=== PATIENT | female | born 1980 | race Caucasian/White ===

== ENCOUNTER 2017-01-01 12:58 | Emergency (ER) | payer OTHER ==
[2017-01-01 13:36] VITALS: BP 119/76
--- NOTE | 2017-01-01 13:51 | UC ---
Respiratory Complaint HPI - HPI Summary HPI Summary: 36 y/o female presents to the urgent care c/o persistent productive cough for the past 3 days. Pt states her symptoms are associated with sore throat, nasal congestion with green nasal discharge, mild body aches, subjective fever at home , mild WILLS. She has not taking anything to alleviate symptoms. Pt denies SOB, chest pain, N/V/D - History of Current Complaint Hx Obtained From: Patient Hx Last Menstrual Period: does not get, mirena ?: No Onset/Duration: Gradual Onset, Lasting Days - 3 days, Still Present Timing: Constant Severity Initially: Moderate Severity Currently: Moderate Pain Intensity: 5 Pain Scale Used: 0-10 Numeric Character: Cough: Productive - green phlegm Aggravating Factors: Nothing Alleviating Factors: Bronchodilator Associated Signs And Symptoms: Positive: Dyspnea, Fever - subjective fever, Nasal Congestion, Sinus Discomfort. Negative: Wheezing - Risk Factors Pulmonary Embolism Risk Factors: Negative Cardiac Risk Factors: Negative Pseudomonas Risk Factors: Negative Tuberculosis Risk Factors: Negative <Christy Almonte - Last Filed: 01/01/17 14:31> <Evelyn Rust - Last Filed: 01/04/17 20:35> - History of Current Complaint Chief Complaint: UCRespiratory Stated Complaint: COUGH CONGESTION Time Seen by Provider: 01/01/17 13:49 - Allergies/Home Medications Allergies/Adverse Reactions: Allergies Allergy/AdvReac Type Severity Reaction Status Date / Time [place] Allergy Shortness Verified 01/01/17 13:36 of Breath PMH/Surg Hx/FS Hx/Imm Hx Previously Healthy: Yes Respiratory History: Asthma Psychological History: Depression - Surgical History Surgical History: Yes Surgery Procedure, Year, and Place: Cholecystectomy, 2008, [facility] – [place] - Family History Known Family History: Positive: Diabetes - father - Social History Occupation: Employed Full-time Lives: With Family Alcohol Use: None Substance Use Type: None Smoking Status (MU): Never Smoked Tobacco Have You Smoked in the Last Year: No Household Exposure Type: Cigarettes - Immunization History Most Recent Influenza Vaccination: NEVER Most Recent Tetanus Shot: unsure Most Recent Pneumonia Vaccination: never <Christy Almonte - Last Filed: 01/01/17 14:31> Review of Systems Constitutional: Fever - subjective at home Skin: Negative Eyes: Negative ENT: Sore Throat, Nasal Discharge, Sinus Congestion Respiratory: Cough - productive Cardiovascular: Negative Gastrointestinal: Negative Genitourinary: Negative Motor: Negative Neurovascular: Negative Musculoskeletal: Negative Neurological: Headache - mild Psychological: Negative Is Patient Immunocompromised?: No All Other Systems Reviewed And Are Negative: Yes <Christy Almonte - Last Filed: 01/01/17 14:31> Physical Exam Triage Information Reviewed: Yes Appearance: Well-Appearing, No Pain Distress, Well-Nourished, Obese Vital Signs: Initial Vital Signs Temp 98.9 F 01/01/17 13:31 Pulse 63 01/01/17 13:31 Resp 16 01/01/17 13:31 BP 119/76 01/01/17 13:31 Pulse Ox 99 01/01/17 13:31 Vital Signs Reviewed: Yes Eye Exam: Normal Eyes: Positive: Conjunctiva Clear - PERRLA, EOMI ENT: Positive: Normal ENT inspection, Hearing grossly normal, Pharyngeal erythema - B/l and positive palate pethechia, Nasal congestion - edematous nasal mucosa, TMs normal, Tonsillar swelling, Other: - B/L maxillary sinus tenderness on percussion. Negative: Tonsillar exudate Neck exam: Normal Neck: Positive: Supple, Nontender, No Lymphadenopathy Respiratory Exam: Normal Respiratory: Positive: Chest non-tender, Lungs clear, Normal breath sounds Cardiovascular Exam: Normal Cardiovascular: Positive: RRR, No Murmur, Pulses Normal, Brisk Capillary Refill Abdominal Exam: Normal Abdomen Description: Positive: Nontender, No Organomegaly, Soft. Negative: CVA Tenderness (R), CVA Tenderness (L) Bowel Sounds: Positive: Present Musculoskeletal Exam: Normal Musculoskeletal: Positive: Strength Intact, ROM Intact, No Edema Neurological Exam: Normal Psychological Exam: Normal Skin Exam: Normal <Christy Almonte - Last Filed: 01/01/17 14:31> Vital Signs: Initial Vital Signs Temp 98.9 F 01/01/17 13:31 Pulse 63 01/01/17 13:31 Resp 16 01/01/17 13:31 BP 119/76 01/01/17 13:31 Pulse Ox 99 01/01/17 13:31 <Evelyn Rust - Last Filed: 01/04/17 20:35> UC Diagnostic Evaluation - Laboratory O2 Sat by Pulse Oximetry: 99 <Christy Almonte - Last Filed: 01/01/17 14:31> Respiratory Course/Dx - Course Course Of Treatment: 36 y/o female presents to the urgent care c/o persistent productive cough for the past 3 days. Pt states her symptoms are associated with sore throat, nasal congestion with green nasal discharge, mild body aches, subjective fever at home, mild WILLS. She has not taking anything to alleviate symptoms. Pt denies SOB, chest pain, N/V/D. Hx obtained. Rapid strep ordered, result:negative Influenza A&B ordered, result: negative. Pt with upper respiratory infection. Pt Advised to continue doing the albuterol nebulizer treatments to alleviate cough and avoid an asthma exacerbation. Pt also Rx Tessalon tabs PO for cough. Ibuprofen PO q6-8hrs to alleviate sore throat. Pt advised If symptoms do not improve or worsen or your develop SOB with fever and severe wheezing please f/u with your PCP or return to the urgent care for further evaluation and treatment. Pt understood and agreed with plan of care. - Differential Dx/Diagnosis Differential Diagnosis/HQI/PQRI: Asthma, Bronchitis, Influenza, Laryngitis, Sinusitis, Other - pharyngitis, Provider Diagnoses: 1- Upper respiratory infection <Christy Almonte - Last Filed: 01/01/17 14:31> Discharge <Christy Almonte - Last Filed: 01/01/17 14:31> <Evelyn Rust - Last Filed: 01/04/17 20:35> - Discharge Plan Condition: Stable Disposition: HOME Prescriptions: Albuterol 2.5MG/3ML (0.083%)* [Ventolin 2.5 MG/3 ML NEB.MAYITO*] 2.5 mg INH Q6H #1 ila Benzonatate CAP* [Tessalon 100 MG CAP*] 100 mg PO TID #15 cap Ibuprofen TAB* [Motrin TAB* 800 MG] 800 mg PO Q6H #30 tab Patient Education Materials: Upper Respiratory Infection (ED) Referrals: Saima Adams MD [Primary Care Provider] - If Needed Additional Instructions: 1-Please take the Ibuprofen PO q6-8hrs as directed after meals to alleviate sore throat and swelling. 2-Take Tessalon PO tabs as directed and use the albuterol inhaler to alleviate cough. Increase fluid intake, rest and eat well. 3- If symptoms do not improve or worsen or your develop SOB with fever and severe wheezing please f/u with your PCP or return to the urgent care for further evaluation and treatment Attestation Statement User Type: Provider - I was available for consult. This patient was seen by the MICK. The patient was not presented to, seen by, or examined by me. -D[place]ter <Evelyn Rust - Last Filed: 01/04/17 20:35>
== END 2017-01-01 14:45 | disposition home or self-care (01) ==
LOC: UCCORT 12:58
DX: J06.9 Acute upper respiratory infection, unspecified (principal); J45.909 Unspecified asthma, uncomplicated
CPT/HCPCS: 87502; 87651; 99212; G0463

== ENCOUNTER 2017-01-13 12:03 | Emergency (ER) | payer OTHER ==
--- NOTE | 2017-01-13 14:23 | RAD ---
HISTORY: Persistent cough, fever COMPARISONS: None VIEWS: 4: Frontal dual-energy and lateral views of the chest. FINDINGS: CARDIOMEDIASTINAL SILHOUETTE: The cardiomediastinal silhouette is normal. ABRAN: The abran are normal. PLEURA: The costophrenic angles are sharp. No pleural abnormalities are noted. LUNG PARENCHYMA: The lungs are clear. ABDOMEN: The upper abdomen is clear. There is no subphrenic gas. BONES AND SOFT TISSUES: No bone or soft tissue abnormalities are noted. OTHER: None. IMPRESSION: NO ACTIVE CARDIOPULMONARY DISEASE.
--- NOTE | 2017-01-13 14:24 | UC ---
Respiratory Complaint HPI - HPI Summary HPI Summary: 36 y/o female presents to the urgent care c/o persistent productive cough for the past 2 weeks not getting better. Now she is having subjective fever at home Pt has tried to alleviate symptoms w/ Dayquil, and Nyquil w/o any improvement. Now unable to sleep due to coughSymptoms started with nasal congestion, then cough developed. Pt denies SOB, chest pain, N/V/D, abdominal pain. - History of Current Complaint Chief Complaint: UCGeneralIllness Stated Complaint: COUGH Time Seen by Provider: 01/13/17 13:57 Hx Obtained From: Patient Hx Last Menstrual Period: has mirena ?: No Onset/Duration: Gradual Onset, Lasting Weeks - 2 weeks, Still Present Timing: Constant Severity Initially: Mild Severity Currently: Moderate Pain Intensity: 0 Pain Scale Used: 0-10 Numeric Character: Cough: Productive, Sputum Description: - green Aggravating Factors: Deep Breaths Alleviating Factors: OTC Meds Associated Signs And Symptoms: Positive: Fever - subjective at home, Nasal Congestion. Negative: Dyspnea - Risk Factors Pulmonary Embolism Risk Factors: Negative Cardiac Risk Factors: Negative Pseudomonas Risk Factors: Negative Tuberculosis Risk Factors: Negative - Allergies/Home Medications Allergies/Adverse Reactions: Allergies Allergy/AdvReac Type Severity Reaction Status Date / Time [place] Allergy Shortness Verified 01/13/17 12:38 of Breath Home Medications: Home Medications Albuterol 2.5MG/3ML (0.083%)* [Ventolin 2.5 MG/3 ML NEB.MAYITO*] 2.5 mg INH Q6H PRN 01/13/17 [History Confirmed 01/13/17] Albuterol HFA INHALER* [Ventolin HFA Inhaler*] 1 - 2 puff INH Q6H PRN 01/13/17 [ History Confirmed 01/13/17] PMH/Surg Hx/FS Hx/Imm Hx Previously Healthy: Yes Respiratory History: Asthma, Bronchitis - Surgical History Surgical History: Yes Surgery Procedure, Year, and Place: Cholecystectomy, 2008, [facility] - Family History Known Family History: Positive: Diabetes - father - Social History Occupation: Employed Full-time Lives: With Family Alcohol Use: None Substance Use Type: None Smoking Status (MU): Never Smoked Tobacco Have You Smoked in the Last Year: No Household Exposure Type: Cigarettes - Immunization History Most Recent Influenza Vaccination: NEVER Most Recent Tetanus Shot: unsure Most Recent Pneumonia Vaccination: never Review of Systems Constitutional: Fever - subjective at home Skin: Negative Eyes: Negative ENT: Nasal Discharge, Sinus Congestion Respiratory: Cough Cardiovascular: Negative Gastrointestinal: Negative Genitourinary: Negative Motor: Negative Neurovascular: Negative Musculoskeletal: Negative Neurological: Negative Psychological: Negative Is Patient Immunocompromised?: No All Other Systems Reviewed And Are Negative: Yes Physical Exam Triage Information Reviewed: Yes Vital Signs: Initial Vital Signs Temp 97.8 F 01/13/17 12:39 Pulse 69 01/13/17 12:39 Resp 16 01/13/17 12:39 BP 108/73 01/13/17 12:39 Pulse Ox 99 01/13/17 12:39 - Additional Comments Vital Signs Reviewed: Yes Eyes: Positive: Conjunctiva Clear - PERRLA, EOMI, fundi grossly normal ENT: Positive: Normal ENT inspection, Hearing grossly normal, Pharynx normal, Nasal congestion - edematous and erythematous nasal mucosa, Nasal drainage - yellowish drainage, TMs normal. Negative: Tonsillar swelling, Tonsillar exudate Neck: Positive: Supple, Nontender, No Lymphadenopathy Respiratory: no orthopnea or dyspnea. Able to speak in full sentences, no retractions or accessory muscle use, no tripod position, stridor, or head bobbing. CTA bilaterally, B/L upper posterior lungs with rhonchi, no rales. no wheezes. Cardiovascular: Positive: RRR, No Murmur, Pulses Normal, Brisk Capillary Refill Abdomen Description: Positive: Nontender, No Organomegaly, Soft. Negative: CVA Tenderness (R), CVA Tenderness (L) Bowel Sounds: Positive: Present Musculoskeletal Exam: Normal Musculoskeletal: Positive: Strength Intact, ROM Intact, No Edema Neurological Exam: Normal Psychological Exam: Normal Skin Exam: Normal Diagnostic Evaluation - Laboratory O2 Sat by Pulse Oximetry: 99 Respiratory Course/Dx - Course Course Of Treatment: 36 y/o female presents to the urgent care c/o persistent productive cough for the past 2 weeks not getting better. Now she is having subjective fever at home.Pt has tried to alleviate symptoms w/ Dayquil, and Nyquil w/o any improvement. Now unable to sleep due to coughSymptoms started with nasal congestion, then cough developed. Pt denies SOB, chest pain, N/V/D, abdominal pain.Hx obtained. Pt with B/L rhonchi on postrior upper lungs. Chest X-ray ordered. Impression: No acute cardiopulmonary disease observed. Pt Rx Z- fabiola PO and advised to use her albuterol inhaler to alleviate cough, Eat well, rest and increase fluid intake. Pt understood and agreed with D/C instructions. - Differential Dx/Diagnosis Differential Diagnosis/HQI/PQRI: Asthma, Bronchitis, Laryngitis, Lower Resp Infection, Sinusitis, Other - pneumonia Provider Diagnoses: 1- Acute bronchitis Discharge - Discharge Plan Condition: Stable Disposition: HOME Prescriptions: Azithromycin TAB* [Zithromax TAB (Z-FABIOLA) 250 mg #6 tabs] 2 tab PO .TODAY, THEN 1 DAILY #1 fabiola Patient Education Materials: Acute Bronchitis (ED) Referrals: Saima Adams MD [Primary Care Provider] - 3 Days Additional Instructions: 1-Please take full course of antibiotic to avoid resistance. 2-continue using the albuterol inhaler to alleviate cough. Increase fluid intake , rest and eat well. 3- If symptoms do not improve or worsen or your develop SOB with fever and severe wheezing please go immediately to the ER further evaluation and treatment. 4- F/u with your PCP in 2-3 days for further management on your Asthma
[2017-01-13 14:45] VITALS: BP 109/69
== END 2017-01-13 14:48 | disposition home or self-care (01) ==
LOC: UCCORT 12:03
DX: J20.9 Acute bronchitis, unspecified (principal); J45.909 Unspecified asthma, uncomplicated
CPT/HCPCS: 71020; 99212; G0463

== ENCOUNTER 2017-03-27 16:19 | Emergency (ER) | payer SELFPAY ==
[2017-03-27] MEDS ORDERED: Silver Sulfadiazine 1%* 20 GM TOPICAL ONE (16:23)
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
[2017-03-27] MEDS ORDERED: predniSONE TAB* 20 MG PO ONE (16:24)
[2017-03-27 16:29] VITALS: BP 147/89
== END 2017-03-27 17:07 | disposition home or self-care (01) ==
LOC: UCCORT 16:19
DX: T22.111A Burn of first degree of right forearm, initial encounter (principal); X13.1XXA Other contact with steam and other hot vapors, initial encounter; Y92.9 Unspecified place or not applicable
CPT/HCPCS: 99213; A9270-GY; G0463; J7512

== ENCOUNTER 2017-05-02 21:51 | Emergency (ER) | payer OTHER ==
[2017-05-02 22:08] VITALS: BP 108/76
[2017-05-02] MEDS ORDERED: Fluconazole 100 MG TAB* TAB PO ONE (22:32)
--- NOTE | 2017-05-02 22:36 | UC ---
Complaint Female HPI - HPI Summary HPI Summary: Pt c/o of white vaginal discharge. X 2-3 days. - History Of Current Complaint Chief Complaint: UCGU Stated Complaint: PERSONAL Time Seen by Provider: 05/02/17 21:58 Hx Obtained From: Patient Hx Last Menstrual Period: has mirena ?: No Onset/Duration: Gradual Onset, Lasting Days Timing: Constant Severity Initially: Mild Severity Currently: Mild Pain Intensity: 0 Associated Signs And Symptoms: Positive: Vaginal Discharge - Allergies/Home Medications Allergies/Adverse Reactions: Allergies Allergy/AdvReac Type Severity Reaction Status Date / Time [place] Allergy Shortness Verified 05/02/17 22:01 of Breath PMH/Surg Hx/FS Hx/Imm Hx Previously Healthy: Yes - Surgical History Surgical History: Yes Surgery Procedure, Year, and Place: Cholecystectomy, [place], [facility] [place] - Family History Known Family History: Positive: Diabetes - father - Social History Occupation: Employed Full-time Lives: With Family Alcohol Use: None Substance Use Type: None Smoking Status (MU): Never Smoked Tobacco Have You Smoked in the Last Year: No Household Exposure Type: Cigarettes - Immunization History Most Recent Influenza Vaccination: NEVER Most Recent Tetanus Shot: unsure Most Recent Pneumonia Vaccination: never Review of Systems Constitutional: Negative Skin: Negative Eyes: Negative ENT: Negative Respiratory: Negative Cardiovascular: Negative Gastrointestinal: Negative Genitourinary: Vaginal/Penile Discharge Motor: Negative Neurovascular: Negative Musculoskeletal: Negative Neurological: Negative Psychological: Negative Is Patient Immunocompromised?: No All Other Systems Reviewed And Are Negative: Yes Physical Exam Triage Information Reviewed: Yes Appearance: Well-Appearing Vital Signs: Initial Vital Signs Temp 98.2 F 05/02/17 22:04 Pulse 82 05/02/17 22:04 Resp 20 05/02/17 22:04 BP 108/76 05/02/17 22:04 Pulse Ox 100 05/02/17 22:04 Vital Signs Reviewed: Yes Eye Exam: Normal ENT Exam: Normal Neck exam: Normal Respiratory Exam: Normal Cardiovascular Exam: Normal Abdominal Exam: Other - small amount of mucus like white discharge in vaginal tract. no erythema, no edema, no thick white dischrge Abdomen Description: Positive: Nontender Musculoskeletal Exam: Normal Neurological Exam: Normal Psychological Exam: Normal Skin Exam: Normal Complaint Female Dx - Differential Dx/Diagnosis Differential Diagnosis/HQI/PQRI: Urinary Tract Infection, Other - vaginal yeast infection Provider Diagnoses: vaginal discharge Discharge - Discharge Plan Condition: Stable Disposition: HOME Patient Education Materials: Vaginal Discharge (ED) Referrals: Saima Adams MD [Primary Care Provider] - Additional Instructions: Please follow up with your PCP and your [employer] provider or return to clinic
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
== END 2017-05-02 22:36 | disposition home or self-care (01) ==
LOC: UCCORT 21:51
DX: N89.8 Other specified noninflammatory disorders of vagina (principal); Z90.49 Acquired absence of other specified parts of digestive tract; Z77.22 Contact with and (suspected) exposure to environmental tobacco smoke (acute) (chronic)
CPT/HCPCS: 87480; 87510; 87660; 99212; A9270-GY; G0463

== ENCOUNTER 2019-03-30 12:22 | Emergency (ER) | payer BC, OTHER ==
--- OUTSIDE RECORDS SUMMARY | 2019-03-30 12:29 | XMS REPORT | Continuity of Care Document ---
:1980 External Reference #:[id number] Demographics Address [address] [place] [address] Home Phone [phone] Mobile Phone [phone] Email Address Preferred Language en Marital Status Not or Latter-Day Affiliation Unknown Race White Ethnic Group Not or Author Name Sonia Jamil MD (transmitted by agent of provider Delaney Amador) Address [address] [facility] [place] [address] Care Team Providers Name Role Phone Lisa Adams Care Team Information Combination Machine Tool Operator [phone] Problems Active Problems Provider Date Dysplasia of cervix Sonia Jamil MD Onset: 07/27/2011 Venereal disease screening Sonia Jamil MD Onset: 10/18/2012 Gynecologic examination Sonia Jamil MD Onset: 10/18/2012 Screening for malignant neoplasm of cervix Sonia Jamil MD Onset: 2012 Human papilloma virus infection Sonia Jamil MD Onset: 10/18/2012 Supervison Of Normal Other Halley Paige NP Onset: 04/17/2013 Cervicovaginal cytology: Low grade squamous Sonia Jamil MD Onset: 01/09 intraepithelial lesion Social History Type Date Description Comments Sex Unknown Tobacco Use Start: Unknown Patient has never smoked Smoking Status Reviewed: 02/24/19 Patient has never smoked GEETHA: 09/22/2013 Estimated Date of Delivery Based on LMP Allergies, Adverse Reactions, Alerts Description No Known Drug Allergies Medications Active Medications SIG Qnty Indications Ordering Provider Date Fluconazole 1 by mouth then 2tabs Sonia Jamil, 09/06/2018 150mg Tablets repeat in 72 MD hours Mirena Unknown 20mcg/24HR IUD Citalopram 1/2 by mouth Unknown Hydrobromide every day 20mg Tablets Medications Administered in Office Medication SIG Qnty Indications Ordering Provider Date PT SCRN Tbco Id as Non User Sonia Jamil MD 03/26/2018 Injection Injection Rho (D) Immune Ely Duncan CNM 07/03/2013 Globulin, Human, One Dose Package Injection Injection Rho (D) Immune Dioni Rendon M.D. 03/19/2007 Globulin, Human, One Dose Package Injection Injection Rho (D) Immune Nurses 03/19/2007 Globulin, Human, One Dose Package Injection Injection Rho (D) Immune Mike Diez C.N.M. 10/06/2004 Globulin, Human, One Dose Package Injection Immunizations CPT Code Status Date Vaccine Lot # [id number] Given 2013 Tetnus, Diptheria Toxoids And Acellular Pertussis, PT > 7Yrs Old [address] Given 06/28/2010 Tetnus, Diptheria Toxoids And Acellular Pertussis, PT > 7Yrs Old Vital Signs Date Vital Result Comment 02/24/2019 2:27pm Height 63 inches 5'3" Last Menstrual Period [id number] 3 Parity 3 01/14/2019 2:32pm BP Systolic 108 mmHg BP Diastolic 68 mmHg Height 63 inches 5'3" Weight 193.00 lb BMI (Body Mass Index) 34.2 kg/m2 3 Parity 3 Results Test Acquired Date Facility Test Result H/L Range Note Laboratory test 01/14/2019 [facility] Cytology SEE RESULT [address] [place] [address] BELOW [phone] GC/Chlamydia 01/14/2019 [facility] Chlamydia [place] [address] trachomatis Deisy [phone] Neisseria gonorrhoeae (GC) Deisy Negative Negative HIV 1&2 p24 01/14/2019 [facility] HIV 4th [place] [address] Generation [phone] Herpes 01/14/2019 [facility] Herpes Simplex [place] [address] Virus I IgG AB 1&2 Igg [phone] Herpes Simplex Virus II IgG AB Negative Negative 2 Laboratory test 01/14/2019 [facility] Herpes Reactive Negative [address] [place] [address] Simplex Igm [phone] Screen Syphillis Igg W/Reflex RPR Negative Negative 4 HSV Ab, IgM by Ifa Negative Negative 5 Laboratory test 09/06/2018 [facility] Cytology SEE RESULT [address] [place], [place] [address] BELOW [phone] Laboratory test 09/06/2018 [facility] Surgical SEE RESULT [address] [place] [address] Pathology BELOW [phone] 1 SEE RESULT BELOW Name: JOVON LAZCANO : [address]: Lynn Castillo [facility] Acct: [id number] Unit: [id number] AGE: 38 Location: [facility] Re01/14/19 SEX: F Status: REG REF SPEC: [id number] MARISELA: 01/14/[address]: Lynn Castillo [facility] REQ: [id number] RECD: 01/15/19 STATUS: SOUT _ ORDERED: TP IMAGE ANALYS, HPV/Thin Prep COMMENTS: [id number] FINAL DIAGNOSIS Negative for Intraepithelial lesion or Malignancy HPV RESULTS Date Time Test Result Flag (u) Normal Range 01/14/19 1532 HPV DEISY Negative Negative The high-risk HPV types detected by the assay include: 16, 18, 31, 33, 35, 39, 45, 51, 52, 56, 58, 59, 66, and 68. SPECIMEN(S) RECEIVED A. Ectocervical/Endocervical CYTOLOGY ADEQUACY Specimen Adequacy: Satisfactory of evaluation Transformation zone component identified CYTOLOGY PATIENT INFORMATION Patient Information: HPV: High risk HPV RNA testing regardless of pap results. Actual Specimen Date: 01/14/19 LMP If Unknown: unknown Date of Last Specimen: 03/26/18 ?: N Post Menopausal?: N Hysterectomy?: N CONTINUED ON NEXT PAGE DEPARTMENT OF PATHOLOGY, [facility] [place] [address] Khai Hull M.D. Director [facility] # [id number] Previous Abnormal Pap Smears?:Y If Yes, enter Diagnosis: Low grade squamous intraepithelial lesion. +HPV Signed by and Reported on: TOM Maldonado (ASCP) 5014 This Pap test was evaluated with the assistance of the SprainGoPrep Test Imaging System. Due to cytologic findings at the back panel padder microscope, comprehensive manual rescreening by a Packer may be required. The Pap Smear is a screening test designed to aid in the detection of premalignant and malignant conditions of the uterine cervix. It is not a diagnostic procedure and should not be used as the sole means of detecting cervical cancer. Both false- positive and false- negative reports do occur. Depending on your risk status, a Pap smear should be obtained and evaluated every 1-3 years. END OF REPORT DEPARTMENT OF PATHOLOGY, [facility] [place], [place] [address] Khai Hull M.D. Director [facility] # [id number] 2 Test Performed by: [place] [address] Solar Energy Specialist: Rd Vasques M.D. Ph.D.; CLIA# [id number] 3 Reactive, but NOT diagnostic. Confirmatory testing by immunofluorescence antibody (IFA) is required and has been ordered under test "Herpes Simplex Virus (HSV) Antibody, IgM, by Immunofluorescence Assay (IFA), Serum." ADDITIONAL INFORMATION This test has been modified from the heater planer operator's instructions. Its performance characteristics were determined by [facility] in a manner consistent with CLIA requirements. This test has not been cleared or approved by the U.S. Food and Drug Administration. Test Performed by: [facility] [place] [address] Solar Energy Specialist: Rd Vasques M.D. Ph.D.; CLIA# [id number] 4 [id number] ADDITIONAL INFORMATION HSV IgM performed by immunofluorescence antibody (IFA). Test Performed by: [facility] [place] [address] Solar Energy Specialist: Rd Vasques M.D. Ph.D.; CLIA# [id number] 6 SEE RESULT BELOW Name: JOVON LAZCANO : [address]: Sonia Jamil MD Acct: [id number] Unit: [id number] AGE: 38 Location: [facility] Re09/06/18 SEX: F Status: REG REF SPEC: [id number] MARISELA: 09/06/18 [facility] [address]: Sonia Jamil MD REQ: [id number] RECD: 09/06/18 STATUS: YANA AGUIRRE DR: Saima Adams MD _ ORDERED: TP IMAGE ANALYS, PILOT PLANT OPERATOR PHYS INTERP, HPV/Thin Prep COMMENTS: [id number] EPITHELIAL CELL ABNORMALITIES Atypical squamous cells of undetermined significance Date Time Test Result Flag (u) Normal Range 09/06/18 1232 HPV RNA POSITIVE An Negative The high-risk HPV types detected by the assay include: 16, 18, 31, 33, 35, 39, 45, 51, 52, 56, 58, 59, 66, and 68. A. Ectocervical/Endocervical Specimen Adequacy: Satisfactory of evaluation Transformation zone component identified Patient Information: HPV: High risk HPV RNA testing regardless of pap results. Actual Specimen Date: 09/06/18 LMP If Unknown: IUD Date of Last Specimen: 03/26/18 Signed by and Reported on: Khai Hlul MD 07/26 1754 This Pap test was evaluated with the assistance of the SprainGoPrep Test Imaging System. Due to cytologic findings at the back panel padder microscope, comprehensive manual rescreening by a Packer may be required. The Pap Smear is a screening test designed to aid in the detection of premalignant and malignant conditions of the uterine cervix. It is not a diagnostic procedure and should not be used as the sole means of detecting cervical cancer. Both false- positive and false- negative reports do occur. Depending on your risk status, a Pap smear should be obtained and evaluated every 1-3 years. END OF REPORT DEPARTMENT OF PATHOLOGY, [address] [place] [address] Khai Hull M.D. Director [facility] # [id number] 7 SEE RESULT BELOW Name: JOVON LAZCANO : [address]: Sonia Jamil MD Acct: [id number] Unit: [id number] AGE: 38 Location: [facility] Re09/06/18 SEX: F Status: REG REF SPEC: [id number] MARISELA: 09/06/18-12[address] [facility] [address]: Sonia Jamil MD REQ: [id number] RECD: 09/06/18 STATUS: YANA AGUIRRE DR: Saima Adams MD _ ORDERED: LEVEL 4/2 COMMENTS: [id number] FINAL DIAGNOSIS 1. Uterus, cervix, biopsy: -- Low-grade squamous intraepithelial lesion (condyloma), with HPV effect. 2. Uterus, endocervix, curettage: -- Fragment of squamous mucosa demonstrating low-grade squamous intraepithelial lesion (mild dysplasia, POORNIMA I) with HPV effect. -- Benign endocervical glandular epithelial fragments and mucin. PRE-OPERATIVE DIAGNOSIS Low grade squamous intraepithelial lesion, HPV positive GROSS DESCRIPTION 1. The specimen is received in formalin labeled, Cervical Biopsy, and consists of a brush-like device with an adherent 0.3 x 0.2 x 0.1 cm aggregate of hoffmann-white irregular soft tissue fragments which is filtered and submitted entirely in one cassette. 2. The specimen is received in formalin labeled, ECC, and consists of a brush-like device with an adherent 1.7 x 1.6 x 0.2 cm aggregate of blood-tinged mucus admixed with hoffmann-white irregular soft tissue fragments which is filtered and submitted entirely in one cassette. Signed by and Reported on: Khai Hull MD 06/25 1332 END OF REPORT DEPARTMENT OF PATHOLOGY, [address] [place] [address] Khai Hull M.D. Director [facility] # [id number] Procedures Date Code Description Status 09/06/2018 75752 Colposcopy W/Biopsy Cervix/Endocervical Curettage Completed Medical Devices Description No Information Available Encounters Type Date Location Provider Dx Diagnosis Office Visit 01/14/2019 [facility] Office Lynn Palacios R87.619 Unsp abnormal 2:30p ABENA Castillo cytolog findings in specmn from cervix uteri Z11.3 Encntr screen for infections w sexl mode of transmiss Assessments Date Code Description Provider 01/14/2019 R87.619 Unspecified abnormal cytological findings Lynn Castillo CNM in specimens from cervix uteri 01/14/2019 Z11.3 Encounter for screening for infections Lynn Castillo CNM with a predominantly sexual mode of transmission 09/06/2018 R87.612 Low grade squamous intraepithelial lesion Sonia Jamil MD on cytologic smear Plan of Treatment No Information Available Functional Status Description No Information Available Mental Status Description No Information Available Referrals Description No Information Available
[2019-03-30 12:42] VITALS: BP 138/84
--- NOTE | 2019-03-30 12:55 | UC ---
Complaint Female HPI - HPI Summary HPI Summary: Pt states she thinks she has a vaginal yeast infection. No hx of STD's, one partner. Vaginal itching and whitish discharge. - History Of Current Complaint Chief Complaint: UCGU Stated Complaint: PERSONAL Time Seen by Provider: 03/30/19 12:44 Hx Obtained From: Patient Hx Last Menstrual Period: doesn't get; control ?: No Onset/Duration: Gradual Onset Timing: Constant Severity Initially: Mild Severity Currently: Mild Pain Intensity: 0 Character: Not Applicable Aggravating Factor(s): Other - Pt states she did not clean herself after intercourse and she thinks that may have caused it. No urinary symptoms. - Allergies/Home Medications Allergies/Adverse Reactions: Allergies Allergy/AdvReac Type Severity Reaction Status Date / Time pine Allergy Shortness Uncoded 03/30/19 12:42 of Breath PMH/Surg Hx/FS Hx/Imm Hx Previously Healthy: Yes Respiratory History: Asthma Psychological History: Depression - Surgical History Surgical History: Yes Surgery Procedure, Year, and Place: Cholecystectomy, 2008, [facility] [place] - Family History Known Family History: Positive: Diabetes - father - Social History Alcohol Use: None Substance Use Type: None Smoking Status (MU): Never Smoked Tobacco Have You Smoked in the Last Year: No Household Exposure Type: Cigarettes - Immunization History Most Recent Influenza Vaccination: NEVER Most Recent Tetanus Shot: unsure Most Recent Pneumonia Vaccination: never Review of Systems All Other Systems Reviewed And Are Negative: Yes Genitourinary: Positive: Vaginal/Penile Itching, Vaginal/Penile Discharge - Very minimal whitish discharge Is Patient Immunocompromised?: No Physical Exam Triage Information Reviewed: Yes Appearance: Well-Appearing, No Pain Distress, Well-Nourished Vital Signs: Initial Vital Signs Temp 99.1 F 03/30/19 12:39 Pulse 73 03/30/19 12:39 Resp 20 03/30/19 12:39 BP 138/84 03/30/19 12:39 Pulse Ox 100 03/30/19 12:39 Vital Signs Reviewed: Yes Pelvic Exam: Positive: Other - Mild redness and irritaion around vaginal opening , no active drainage at this time. Exam done with bioprocess development engineer. Musculoskeletal Exam: Normal Neurological Exam: Normal Psychological Exam: Normal Skin Exam: Normal Complaint Female Dx - Course Course Of Treatment: Will treat for a vaginal yeast infection. If no improvement to follow up with OB /SOLAR APPLICATIONS DEVELOPMENT ENGINEER provider. - Differential Dx/Diagnosis Provider Diagnosis: Vaginitis Discharge ED - Sign-Out/Discharge Documenting (check all that apply): Patient Departure All imaging exams completed and their final reports reviewed: No Studies - Discharge Plan Condition: Good Disposition: HOME Prescriptions: Fluconazole 150 MG TAB* [Diflucan 150 MG TAB*] 150 mg PO ONCE 1 Days #1 tablet Patient Education Materials: Yeast Infection (ED) Referrals: Saima Adams MD [Primary Care Provider] - Additional Instructions: May repeat the Diflucan in one week if continued symptoms. Follow up with your DRUM LOADER AND UNLOADER provider if no improvement - Billing Disposition and Condition Condition: GOOD Disposition: Home - Attestation Statements Provider Attestation: I was available for consult. This patient was seen by the MICK. The patient was not presented to , seen by or examined by mi -Chetna Rock MD
== END 2019-03-30 13:05 | disposition home or self-care (01) ==
LOC: UCCORT 12:22
DX: N76.0 Acute vaginitis (principal); Z91.09 Other allergy status, other than to drugs and biological substances; J45.909 Unspecified asthma, uncomplicated
CPT/HCPCS: 99212; G0463